=== PATIENT | female | born 1960 | race Caucasian/White ===

== ENCOUNTER 2018-08-01 06:24 | Day surgery (SDC) | payer OTHER ==
[~2018-08-01] VITALS: Ht 165.1 cm; Wt 82.7 kg
[~2018-08-01 06:24] MED LIST: ALBU8HFA IH; OMEP20 PO; SODIUM CHLORIDE 0.9% 1,000 ML IV ONE
[2018-08-01] MEDS ORDERED: GLYCOPYRROLATE 0.2 MG/ML VIAL IM ONE (06:25)
[2018-08-01] MEDS ORDERED: ALBUTEROL SULFATE 2.5 MG/0.5 ML NEB SOLUTION NEB ONE (06:25)
[2018-08-01] MEDS ORDERED: EPINEPHrine 1:1,000 [1 MG/ML] AMP IM ONE (06:25)
[2018-08-01] MEDS ORDERED: BENZOCAINE 20% 50 MCG/SPRAY 57 GM TP ONE (06:25)
[2018-08-01] MEDS ORDERED: LIDOCAINE 2% 30 ML JELLY TP ONE (06:25)
[2018-08-01] MEDS ORDERED: LIDOCAINE 4% 50 ML SOLUTION TP ONE (06:25)
[2018-08-01] MEDS ORDERED: SODIUM CHLORIDE 0.9% 1,000 ML IV ONE (06:29)
[2018-08-01] MEDS ORDERED: MIDAZOLAM HCL 2 MG/2 ML VIAL ONE (07:34)
[2018-08-01] MEDS ORDERED: FentaNYL CITRATE-PF 100 MCG/2 ML VIAL ONE (07:35)
[2018-08-01] MEDS ORDERED: MethylPREDNISolone SOD SUCC 125 MG/2 ML VIAL IVP ONE (08:30)
[2018-08-01] MEDS ORDERED: MethylPREDNISolone SOD SUCC 125 MG/2 ML VIAL ONE (08:36)
[2018-08-01] MEDS ORDERED: OXYGEN THERAPY IH SCH (20:00)
== END 2018-08-01 09:55 | disposition home or self-care (01) ==
LOC: SURGERY 06:24
PROVIDERS: ATTEND Internal Medicine Critical Care Medicine
DX: J38.4 Edema of larynx (principal); B37.0 Candidal stomatitis; J98.09 Other diseases of bronchus, not elsewhere classified; M47.812 Spondylosis without myelopathy or radiculopathy, cervical region; F12.21 Cannabis dependence, in remission; Z87.891 Personal history of nicotine dependence; Z72.89 Other problems related to lifestyle; Z98.890 Other specified postprocedural states; Z79.899 Other long term (current) drug therapy
CPT/HCPCS: 31623; 31624; 71045; 87015; 87070; 87205; 87206; 87220; 88108; 88312; J0171; J2250; J2930; J3010; J3490; J7030